=== PATIENT | female | born 1975 | race Caucasian/White ===

== ENCOUNTER 2021-09-28 16:50 | Emergency (ER) | payer MEDICAID, OTHER ==
[~2021-09-28] VITALS: Ht 160 cm; Wt 73.0 kg
[~2021-09-28 16:50] MED LIST: ALBU90AE INH; BUDE0.25 IH; CLON-457 PO; IBUP-2030 PO; MONT10TA21 MT; NAPR-677 PO; OMEP20CA14 PO
[2021-09-28] MEDS ORDERED: CYCL10TA21 MT (17:08)
[2021-09-28] MEDS ORDERED: CYCLOBENZAPRINE 10MG TABLET PO ONE (17:15)
[2021-09-28] MEDS ORDERED: KETOROLAC 30MG/ML VIAL IM ONE (17:15)
[2021-09-28 18:20] LABS: CLARITY URINE CLEAR (CLEAR); COLOR URINE YELLOW (YELLOW); KETONES URINE TRACE (NEGATIVE); LEUKOCYTE ESTERASE URINE NEGATIVE (NEGATIVE); NITRITE URINE NEGATIVE (NEGATIVE); OCCULT BLOOD URINE NEGATIVE (NEGATIVE); PH URINE 6.5 (4.5-8.0); PROTEIN URINE NEGATIVE (NEGATIVE)
[2021-09-28 18:52] VITALS: BP 137/77
== END 2021-09-28 19:01 | disposition home or self-care (01) ==
LOC: ER 16:50
DX: M54.59 Other low back pain (principal); M79.662 Pain in left lower leg; M79.661 Pain in right lower leg; Z20.822 Contact with and (suspected) exposure to COVID-19; M79.18 Myalgia, other site; R53.83 Other fatigue; R20.0 Anesthesia of skin
CPT/HCPCS: 81003; 81025; 87426; 96372; 99283; C9803; J1885